=== PATIENT | female | born 1970 | race Two or more races ===

== ENCOUNTER 2024-05-16 14:54 | Emergency (ER) | payer MEDICAID, SELFPAY ==
[2024-05-16 15:32] VITALS: BP 129/82; PULSE 89; RESP 18; TEMP 36.9; O2SAT 99; BMI 28.6
--- NOTE | 2024-05-16 15:44 | XR_ITS ---
Examination: CT abdomen and pelvis without contrast. Coronal 3-D reconstructions. Sagittal 2-D reconstructions. Date and time of exam:May 11 5025 1736 hours COMPARISON: 2022 INDICATIONS: Onset of abdominal pain today CTDI: vol (mGy): 8 DLP: (mGycm): 423 Technique: Axial images of the abdomen have been obtained, 3 mm slice thickness Intravenous contrast material has not been administered. Low dose protocols were performed. One or more of the following dose reduction techniques were used; automated exposure control, adjustment of the mA and/or KV according to patient size, use of iterative reconstruction technique. Findings: No focal liver or splenic lesions No gallstones No pancreatic or adrenal mass No renal or ureteral calculi, no hydronephrosis Aorta normal size Normal appendix 13 mm fat-containing umbilical hernia No bowel obstruction Anteverted uterus no adnexal mass Urinary bladder intact IMPRESSION: No renal or ureteral calculi, no hydronephrosis [id number] bilateral renal parenchymal scar formation Normal appendix No bowel obstruction diverticulitis or free air
--- NOTE | 2024-05-16 15:45 | PD.EDRME ---
Rapid Medical Screening Exam RME Arrival date/time: 05/16/24 14:54 53-year-old female presents to the emergency department complains of abdominal pain Chief Complaint: Abdominal Pain Time Seen by Provider: 05/16/24 15:19 Vital signs: Vital Signs Temperature 98.5 F 05/16/24 15:32 Pulse Rate 89 05/16/24 15:32 Respiratory Rate 18 05/16/24 15:32 Blood Pressure 129/82 05/16/24 15:32 Pulse Oximetry (%) 99 05/16/24 15:32 Oxygen Delivery Method Room Air 05/16/24 15:32
[2024-05-16 16:07] LABS: Basophils # (Auto) 0.1 Thou/mm3 (0.0-0.2); Basophils % (Auto) 1 % (0-2.5); Eosinophils % (Auto) 0 % (0-10); Hematocrit 40.9 % (36.0-46.0); Hemoglobin 13.5 g/dL (12.0-16.0); Immature Granulocytes % (Auto) 0 % (0-0); Immature Granulocytes Auto 0.04 Thou/mm3 (0.00-0.00); Lymphocytes # (Auto) 3.5 Thou/mm3 (1.0-4.8); Lymphocytes % (Auto) 33 % (10-50); Mean Corpuscular Hemoglobin 27.4 pg (25.0-35.0); Mean Corpuscular Volume 83 fL (80-100); Monocytes # (Auto) 0.5 Thou/mm3 (0.0-0.8); Monocytes % (Auto) 5 % (0-12); Neutrophils # (Auto) 6.3 Thou/mm3 (1.8-7.7); Neutrophils % (Auto) 61 % (37-80); Nucleated Red Blood Cell % 0 /100 WBC (0); Platelet Count 317 Thou/mm3 (140-440); RDW Standard Deviation 44.3 fL (36.4-46.3); Red Blood Count 4.92 Miln/mm3 (4.00-5.20); White Blood Count 10.4 Thou/mm3 (3.6-11.0)
[2024-05-16 16:59] LABS: Alanine Aminotransferase 20 U/L (10-49); Albumin, Serum 4.9 gm/dL (3.5-5.0); Albumin/Globulin Ratio 1.6 (1.2-2.2); Alkaline Phosphatase 71 U/L (46-116); Anion Gap 9 (7-16); Aspartate Amino Transferase 16 U/L (0-34); BUN/Creatinine Ratio 27 Ratio (12-20); Bilirubin,Total 0.3 mg/dL (0.3-1.2); Blood Urea Nitrogen 16 mg/dL (9-23); Calcium 10.4 mg/dL (8.3-10.6); Calcium (Corrected) 10.4 mg/dL (8.5-10.1); Carbon Dioxide 25.8 mMol/L (20.0-31.0); Chloride 104 mMol/L (98-107); Creatinine (Component) 0.6 mg/dL (0.6-1.3); Estimated Creatinine Clearance 88.5 mL/min (>60); Glucose 90 mg/dL (74-106); Lipase 43 U/L (12-53); Osmolality,Calculated 278 (275-295); Potassium 4.6 mMol/L (3.4-5.1); Sodium 139 mMol/L (136-145); Total Protein 7.9 gm/dL (5.7-8.2); eGFR > 60 See Note
[2024-05-16 17:12] LABS: Collection Type, Urine Clean Catch
[2024-05-16 17:16] LABS: Bilirubin,Urine Negative (Negative); Blood,Urine Negative (Negative); Clarity,Urine Clear (Clear/Hazy); Color,Urine Lt-Yellow (Lt Yel-Yel); Glucose, Urine Negative (Negative); HCG Qualitative,Urine Negative; Ketones,Urine Negative (Negative); Leukocyte Esterase,Urine Positive (Negative); Nitrite,Urine Negative (Negative); PH,Urine 6.5 (5.0-7.0); Protein,Urine Negative (Neg - Trace); RBC,Urine 6 /hpf (0-3); Specific Gravity,Urine 1.019 (1.001-1.035); Squamous Epithelial Cell,Urine 5 /hpf (0-5); Urobilinogen,Urine Negative mg/dL (0.0-1.0); WBC,Urine 13 /hpf (0-5)
[2024-05-16 17:20] LABS: Culture Indicated,Urine Yes
--- NOTE | 2024-05-16 18:55 | PD.EDABDPN ---
ED Abdominal Pain RME/HPI General Chief Complaint: Abdominal Pain Stated complaint: ABD PAIN X4 DAYS Time seen by provider: 05/16/24 15:19 Arrival date/time: 05/16/24 14:54 53 year old female with past medical history of colitis present to emergency room with c/o of LLQ pain for 4 days. LOCATION: LLQ tenderness SEVERITY: Symptoms are described as being severe with limitations on activities of daily living QUALITY: Symptoms are described as being cramping CONTEXT: The patient is unable to identify any inciting events. DURATION/TIMING: The symptoms started approximately 4 days ASSOCIATED SYMPTOMS: The patient is unable to identify any other associated symptoms. MODIFYING FACTORS: The patient is unable to identify any alleviating or aggravating symptoms. PERTINENT ROS: no fevers, no anorexia, no nausea or vomiting, no diarrhea, no ripping or tearing sensations, no syncope or presyncopal symptoms, denies trauma, denies genital pain REVIEW OF SYSTEMS: See History of Present Illness - with the exception of those mentioned in the history of present illness, all other systems reviewed and reported as negative GENERAL: In general the patient is awake, interactive, in an emergency department gurney. HEAD/EYES/EARS/NOSE/THROAT: normo-cephalic, atraumatic, mucus membranes are moist, anicteric, palpebral conjunctiva is pink, trachea is midline. CARDIOVASCULAR: regular rate and regular rhythm, no murmurs, heart sounds are not distant, strong pulses in all four extremities that are equal and symmetric bilateral upper and lower extremities, normal capillary refill. CHEST/PULMONARY: normal chest rise and fall, good air movement, clear to auscultation bilaterally, normal inspiratory to expiratory ratios without evidence of respiratory distress. NECK: No midline/Paraspinal tenderness, no step off ROM/Strenght intact No Kernig and bruzinski sign. No trauma ABDOMEN: soft, LLQ tenderness no rebound or flank tenderness , no masses appreciated BACK: normal range of motion without pain. NEUROLOGICAL: cranio-facial features are symmetric, moves all four extremities equally without obvious limitations or weakness. EXTREMITY: no tenderness to palpation over the long bones or large joints of the bilateral upper and lower extremities, no joint swelling, no joint erythema, no signs of trauma, no unilateral leg swelling and no peripheral edema. SKIN: warm, dry, well-perfused, no jaundice, no rash, no telangiectasias or petechia. PSYCH: calm, cooperative, no evidence of psychosis or agitation RME / HPI RME / HPI narrative: 05/16/24 14:54 53-year-old female presents to the emergency department complains of abdominal pain Related Data Home Medications ?Medication ?Instructions ?Recorded ?Confirmed lisinopril 5 mg tablet 5 mg PO QDAY 11/25/22 11/25/22 metformin 1,000 mg tablet 1,000 mg PO BID 11/25/22 11/25/22 Previous Rx's ?Medication ?Instructions ?Recorded amoxicillin 875 mg-potassium 1 tab PO Q8H 5 days #15 tabs 05/16/24 clavulanate 125 mg tablet Allergies Allergy/AdvReac Type Severity Reaction Status Date / Time No Known Allergies Allergy Verified 05/16/24 14:57 Course Course Course Narrative: Patient presenting with symptoms consistent with urinary tract infection. No evidence for pyelonephritis, nephrolithiasis, traumatic injury, other significant pathology. Urinalysis shows findings consistent with UTI.? test was obtained and was negative.? GC/C was not obtained at request of pt.? Provided prescription for antibiotics. Advised to followup with primary physician if has continued symptoms. Return to ER if has uncontrolled pain, high fever, concern for dehydration, flank pain or other concerns. Plan:? Prescribed augmentin 875mg tid x 5 days ( UTI vs diverticulitis) Culture pending? UTI prevention was discussed including post coital voiding, copious fluids and daily cranberry juice. F/U with PCP if pain continues? ?Informed to return if having uncontrolled pain, high fever, concern for dehydration, flank pain or other concerns. Expressed understanding of and agreement with plan and all questions answered. Quality Measures none Orders Category Date Time Status CT abdomen pelvis wo con Stat Exams 05/16/24 15:44 Completed CBC Stat Lab 05/16/24 15:56 Completed Comprehensive Metabolic Panel Stat Lab 05/16/24 15:56 Completed HCG Qualitative,Urine Stat Lab 05/16/24 16:40 Completed Lipase Stat Lab 05/16/24 15:56 Completed UA, C/S IF [Urinalysis, C/S if Indicated] Stat Lab 05/16/24 16:40 Completed Urine Culture Stat Lab 05/16/24 16:40 Received Amoxicillin/Pot Clav 875 [Augmentin 875] Med 05/16/24 18:54 Discontinued 1 tab PO X1 ONE Ketorolac Inj [Toradol Inj] Med 05/16/24 18:54 Discontinued 30 mg IM X1 ONE Reevaluation(s) Reevaluation #1: pt is comfortable with antibiotic treatment Vital Signs Vital signs: Vital Signs Temperature 98.5 F 05/16/24 15:32 Pulse Rate 89 05/16/24 15:32 Respiratory Rate 18 05/16/24 15:32 Blood Pressure 129/82 05/16/24 15:32 Pulse Oximetry (%) 99 05/16/24 15:32 Oxygen Delivery Method Room Air 05/16/24 15:32 Abdominal Pain MDM Patient data External records reviewed:: [facility] previous records Clinical information provided by:: patient Social determinants that could affect healthcare access:: none Patient has the following chronic illnesses:: colitis How is presenting disease/condition affected by chronic disease/condition?: exacerbated by Evaluation data The following diagnostics were reviewed and interpreted by me:: lab results and radiology exam(s) Lab and/or radiology exams considered but not ordered:: n/a Interpretation Summary: IMPRESSION: ? No renal or ureteral calculi, no hydronephrosis ? [id number] bilateral renal parenchymal scar formation ? Normal appendix ? No bowel obstruction diverticulitis or free air CBC/CMP no acute findings? urine: + leuks + bacteria Medications / Prescriptions Medications or Prescriptions considered but not ordered:: n/a Medication administrations:: Medication Administration History Discontinued Medications Amoxicillin/Clavulanate Potassium (Amoxicillin/Pot Clav 875 Tablet) 1 tab PO X1 ONE Stop: 05/16/24 18:55 Last Admin: 05/16/24 19:05 Dose: 1 tab Documented By: JOSE Ketorolac Tromethamine (Ketorolac Inj 60 Mg/2 Ml Vial) 30 mg IM X1 ONE Stop: 05/16/24 18:55 Last Admin: 05/16/24 19:05 Dose: 30 mg Documented By: JOSE as stated Consultations Consultation(s) initiated? (list below): No Diagnosis Differential diagnosis abdominal pain: abdominal pain, acute appendicitis, calculus of kidney, constipation, diverticulitis, gastroenteritis, pancreatitis, small bowel obstruction and other (UTI) Most likely diagnosis given after review of the tests above:: UTI Admission Indicated Admission indicated?: not indicated Admission Request Was there a request for admission?: No Disposition Plan Disposition Plan: Discharge Discharge Attestation Discharge Attestation: The patient and all family members were given an opportunity to ask questions and understood the discharge instructions. Discharge instructions specifically effects, indications for sooner follow up or return to the emergency department, and the expected course of current diagnosis. Patient condition: Stable Discharge Plan Plan Patient Disposition: HOME (Self Care) Health Concerns: Follow with PMD as directed Take tylenol or motrin as need Return to ED if sx worsen Prescriptions/Referrals Prescriptions/Med Rec: New amoxicillin-pot clavulanate 875-125 mg tablet 1 tab PO Q8H 5 Days Qty: 15 0RF No Action metformin 1,000 mg tablet 1,000 mg PO BID Patient Comments: TOME BUD TABLETA POR V A ORAL DOS VECES AL D A CON ALIMENTO lisinopril 5 mg tablet 5 mg PO QDAY Patient Comments: TOME BUD TABLETA POR V A ORAL TODOS LOS D Referrals: No Primary/Family,Physician [Primary Care Provider] - In 1 week Problem List Clinical Impression: UTI (urinary tract infection) Patient/Caregiver Discharge Instructions Education Materials: Understanding Urinary Tract ... Print Language: Icelandic Stand Alone Forms: Heather Award Info., Patient Portal Info Letter
[2024-05-16] MEDS: KETOROLAC INJ 60 MG/2 ML VIAL 30 MG IM (19:05)
[2024-05-16] MEDS: AMOXICILLIN/POT CLAV 875 TABLET 1 TAB PO (19:05)
== END 2024-05-16 19:11 | disposition home or self-care (01) ==
PROVIDERS: Nurse Practitioner Primary Care; Emergency Provider Emergency Medicine
DX: N39.0 Urinary tract infection, site not specified (principal)
CPT/HCPCS: 36415; 74176; 80053; 81001; 81025; 83690; 85025; 87086; 96372; 99284; J1885; A9270

== ENCOUNTER 2024-11-11 08:54 | Emergency (ER) | payer MEDICAID, SELFPAY ==
[2024-11-11 08:55] VITALS: BMI 30.2
[2024-11-11 09:07] VITALS: BP 134/87; PULSE 70; RESP 19; TEMP 36.8; O2SAT 96
--- NOTE | 2024-11-11 09:13 | XR_ITS ---
Examination: CT abdomen with intravenous contrast CT pelvis with intravenous contrast 2-D coronal reconstructions 2-D sagittal reconstructions Date and time of exam:November 11, 2024, 1030 hrs. Indications: Mid abdominal pain beginning 2 weeks ago Comparison: May 16, 2024. CTDI: vol (mGy) 9.05. DLP: (mGycm) 404 Technique: Multiple axial sections of the abdomen and pelvis have been obtained. 64 slice high-resolution scanner used. 3 mm axial sections have been obtained, post intravenous injection 70 cc Isovue-370. 2-D sagittal, coronal reconstructions obtained. Low dose protocols were performed. One or more of the following dose reduction techniques were used; automated exposure control, adjustment of the mA and/or KV according to patient size, use of iterative reconstruction technique. Findings: Fatty infiltration throughout the liver, no focal liver or splenic lesion. No gallstones. No pancreatic or adrenal mass. No renal or ureteral calculi, no hydronephrosis. Aorta normal size. Normal appendix. 22 mm fat-containing umbilical hernia. Scattered colonic diverticulosis, no diverticulitis No pelvic mass No bladder mass or bladder calculi Moderate osteopenia Impression: No renal or ureteral calculi, no hydronephrosis Normal appendix Small fat-containing umbilical hernia. Colonic diverticulosis, no diverticulitis No bowel obstruction
--- NOTE | 2024-11-11 09:23 | XR_ITS ---
November 11, 2024, 1007 hrs. Indications: Shortness of breath and coughing onset today. Findings: Mild enlargement left ventricle. No pneumonia or pulmonary edema. The osseous structures are intact. Impression: No pneumonia or pulmonary edema.
--- NOTE | 2024-11-11 09:24 | PC.NURSE ---
Patient from [facility] and taken to room 19 with c/o mid to left upper abdominal pain x 3 months, worse x 2 days, no c/o n/v/diarhea, skin is warm dry and pink.
[2024-11-11 09:30] VITALS: PULSE 69
--- NOTE | 2024-11-11 09:42 | EDNOTE_ITS ---
ED Abdominal Pain RME/HPI General Chief Complaint: Abdominal Pain Stated complaint: LEFT ABD PAIN RADIATES TO THROAT Time seen by provider: 11/11/24 09:05 Arrival date/time: 11/11/24 08:54 Limitations: no limitations RME / HPI RME / HPI narrative: DR. ESTEBAN MAIN ED EVALUATION: 54-year-old female with past medical history of hypertension, diabetes mellitus, and GERD presents to the Emergency Department accompanied by her with complaint of left upper abdominal pain radiating to the back for 3 weeks, worsening today. Last oral intake was cookies at 6 AM. Last bowel movement was at 8 AM and was normal. She denies alcohol, tobacco, or recreational drug use. Related Data Home Medications ?Medication ?Instructions ?Recorded ?Confirmed lisinopril 5 mg tablet 5 mg PO QDAY 11/25/22 metformin 1,000 mg tablet 1,000 mg PO BID 11/25/22 atorvastatin 20 mg tablet 20 mg PO .qd 11/11/24 Allergies Allergy/AdvReac Type Severity Reaction Status Date / Time No Known Allergies Allergy Verified 11/11/24 08:57 Review of Systems Review of Systems Systems Reviewed: All systems reviewed, normal except as documented Past Medical History Past Medical History CARDIAC: Positive Hypertension ENDOCRINE: Positive Endocrine Disorders and Diabetes Mellitus Type 2 PSYCHO/SOCIAL: Positive Anxiety OTHER HISTORY: Positive Hospitalization, Chicken Pox, Measles and Mumps Surgical History SURGICAL: Positive Section Social History SMOKING STATUS: Never smoker SUBSTANCE USE: does not use ALCOHOL: Never ED Exam General Limitations: Present no limitations General appearance: Present alert and in no apparent distress Head Head exam: Present atraumatic, normocephalic and normal inspection Eye Eye exam: Present normal appearance, PERRL and EOMI ENT ENT exam: Present normal exam, normal oropharynx and mucous membranes moist Neck Neck exam: Present normal inspection, full ROM and trachea midline Chest Chest inspection: Present normal inspection and symmetric chest wall rise Respiratory Respiratory exam: Present normal lung sounds bilaterally Cardiovascular Cardiovascular exam: Present regular rate, normal rhythm and normal heart sounds Abdominal Exam Abdominal exam: Present tenderness (left upper quadrant tenderness without costochondral involvement) and normal bowel sounds Extremities Exam Extremities exam: Present normal inspection and full ROM Back Exam Back exam: Present normal inspection and full ROM Neurological Exam Neurological exam: Present alert, oriented X3 and CN II-XII intact Psychiatric Psychiatric exam: Present normal affect and normal mood Skin Skin exam: Present warm, dry, intact and normal color Course Quality Measures none Orders Category Date Time Status CT Screening NOW Care 11/11/24 09:13 Active Chopped Strand Operator NOW Care 11/11/24 09:23 Active Continuous Pulse Oximetry NOW Care 11/11/24 09:23 Completed Insert IV NOW Care 11/11/24 09:13 Active Insert IV NOW Care 11/11/24 09:[address] abdomen pelvis w con Stat Exams 11/11/24 09:13 Completed XR chest 1V portable Stat Exams 11/11/24 09:23 Completed Amylase Stat Lab 11/11/24 09:40 Completed CBC Stat Lab 11/11/24 09:40 Completed Comprehensive Metabolic Panel Stat Lab 11/11/24 09:40 Completed HCG Qualitative,Urine Stat Lab 11/11/24 09:35 Completed Prothrombin Time with INR Stat Lab 11/11/24 09:40 Completed Troponin I Stat Lab 11/11/24 09:40 Completed UA, C/S IF [Urinalysis, C/S if Indicated] Stat Lab 11/11/24 09:35 Completed Morphine* Inj Med 11/11/24 09:13 Discontinued 4 mg IV X1 ONE Ondansetron Inj [Zofran Inj] Med 11/11/24 09:13 Discontinued 4 mg IVP X1 ONE Sodium Chloride 0.9% 1000 ml [Ns] 1,000 ml Med 11/11/24 09:23 Discontinued IV 1,000 mls/hr Vital Signs Vital signs: Vital Signs Temperature 98.3 F 11/11/24 09:07 Pulse Rate 70 11/11/24 09:07 Respiratory Rate 19 11/11/24 09:07 Blood Pressure 134/87 H 11/11/24 09:07 Pulse Oximetry (%) 96 11/11/24 09:07 Oxygen Delivery Method Room Air 11/11/24 09:07 Abdominal Pain MDM MDM Narrative MDM Narrative:: I, Jackelyn Servin am scribing for and in the presence of Dr. Esteban. Patient data External records reviewed:: [facility] previous records Clinical information provided by:: patient Social determinants that could affect healthcare access:: none Patient has the following chronic illnesses:: Hypertension, diabetes, and GERD. How is presenting disease/condition affected by chronic disease/condition?: exacerbated by Evaluation data The following diagnostics were reviewed and interpreted by me:: lab results and radiology exam(s) Lab and/or radiology exams considered but not ordered:: none Interpretation Summary: Procedure(s): XR chest 1V portable Accession Number(s): [id number] cc: Eleuterio Esteban MD; Roel Rendon MD; Federico Olson MD~ November 11, 2024, 1007 hrs. Indications: Shortness of breath and coughing onset today. Findings: Mild enlargement left ventricle. No pneumonia or pulmonary edema. The osseous structures are intact. Impression: No pneumonia or pulmonary edema. Dictated By: Federico Olson MD Procedure(s): CT abdomen pelvis w con Accession Number(s): [id number] cc: Pricilla (TORY),Riley SPEARS; Roel Rendon MD; Federico Olson MD~ Examination: CT abdomen with intravenous contrast CT pelvis with intravenous contrast 2-D coronal reconstructions 2-D sagittal reconstructions Date and time of exam:November 11, 2024, 1030 hrs. Indications: Mid abdominal pain beginning 2 weeks ago Comparison: May 16, 2024. CTDI: vol (mGy) 9.05. DLP: (mGycm) 404 Technique: Multiple axial sections of the abdomen and pelvis have been obtained. 64 slice high-resolution scanner used. 3 mm axial sections have been obtained, post intravenous injection 70 cc Isovue-370. 2-D sagittal, coronal reconstructions obtained. Low dose protocols were performed. One or more of the following dose reduction techniques were used; automated exposure control, adjustment of the mA and/or KV according to patient size, use of iterative reconstruction technique. Findings: Fatty infiltration throughout the liver, no focal liver or splenic lesion. No gallstones. No pancreatic or adrenal mass. No renal or ureteral calculi, no hydronephrosis. Aorta normal size. Normal appendix. 22 mm fat-containing umbilical hernia. Scattered colonic diverticulosis, no diverticulitis No pelvic mass No bladder mass or bladder calculi Moderate osteopenia Impression: No renal or ureteral calculi, no hydronephrosis Normal appendix Small fat-containing umbilical hernia. Colonic diverticulosis, no diverticulitis No bowel obstruction Dictated By: Federico Olson MD Medications / Prescriptions Medications or Prescriptions considered but not ordered:: none Medication administrations:: Medication Administration History Discontinued Medications Sodium Chloride (Ns) 1,000 mls @ 1,000 mls/hr IV .Q1H ONE Stop: 11/11/24 10:22 Last Infusion: 11/11/24 10:53 Dose: Infused Documented By: Admin: 11/11/24 09:52 Dose: 1,000 mls/hr Documented By: JERMAIN Morphine Sulfate (Morphine Sulf Inj 4 Mg/Ml Vial) 4 mg IV X1 ONE Stop: 11/11/24 09:14 Last Admin: 11/11/24 09:57 Dose: 4 mg Documented By: JERMAIN Ondansetron HCl (Ondansetron Inj 2 Mg/Ml Inj 2 Ml) 4 mg IVP X1 ONE; Protocol Stop: 11/11/24 09:14 Last Admin: 11/11/24 09:53 Dose: 4 mg Documented By: JERMAIN see above Consultations Consultation(s) initiated? (list below): No Diagnosis Differential diagnosis abdominal pain: other (Diverticulitis, pancreatitis, and gastritis.) Most likely diagnosis given after review of the tests above:: Abdominal pain Admission Indicated Admission indicated?: not indicated Admission Request Was there a request for admission?: No Disposition Plan Disposition Plan: Discharge Discharge Attestation Discharge Attestation: The patient and all family members were given an opportunity to ask questions and understood the discharge instructions. Discharge instructions specifically effects, indications for sooner follow up or return to the emergency department, and the expected course of current diagnosis. Patient condition: Stable Discharge Plan Plan Patient Disposition: HOME (Self Care) Patient condition on transfer: Stable Prescriptions/Referrals Prescriptions/Med Rec: No Action atorvastatin 20 mg tablet 20 mg PO .qd Patient Comments: YUNIOR GREENEDOS LOS D PARA 90 NDIAYE metformin 1,000 mg tablet 1,000 mg PO BID Patient Comments: TOME BUD TABLETA POR V A ORAL DOS VECES AL D A CON ALIMENTO lisinopril 5 mg tablet 5 mg PO QDAY Patient Comments: TOME BUD TABLETA POR V A ORAL TODOS LOS D Referrals: Roel Rendon MD [Primary Care Provider, Family Practice] - In 1 week Problem List Clinical Impression: Abdominal pain Patient/Caregiver Discharge Instructions Discharge Activity: activity as tolerated Education Materials: Abdominal Pain Additional Instructions: Follow-up with your doctor next week. You can eat any foods that you would like. Take Tylenol 500 mg 1 every 6 hours as needed for pain. Print Language: Wallisian
[2024-11-11 09:51] LABS: Basophils # (Auto) 0.1 Thou/mm3 (0.0-0.2); Basophils % (Auto) 1 % (0-2.5); Eosinophils # (Auto) 0.1 Thou/mm3 (0.0-0.5); Eosinophils % (Auto) 1 % (0-10); Hematocrit 38.6 % (36.0-46.0); Hemoglobin 12.6 g/dL (12.0-16.0); Immature Granulocytes Auto 0.05 Thou/mm3 (0.00-0.00); Lymphocytes # (Auto) 3.9 Thou/mm3 (1.0-4.8); Lymphocytes % (Auto) 39 % (10-50); Mean Corpuscular HGB Conc 32.6 g/dl (31.0-37.0); Mean Corpuscular Hemoglobin 27.5 pg (25.0-35.0); Mean Corpuscular Volume 84 fL (80-100); Monocytes # (Auto) 0.7 Thou/mm3 (0.0-0.8); Monocytes % (Auto) 7 % (0-12); Neutrophils # (Auto) 5.1 Thou/mm3 (1.8-7.7); Neutrophils % (Auto) 52 % (37-80); Nucleated Red Blood Cell # 0.00 Thou/mm3 (0.00-0.00); Nucleated Red Blood Cell % 0 /100 WBC (0); Platelet Count 310 Thou/mm3 (140-440); RDW Standard Deviation 45.1 fL (36.4-46.3); Red Blood Count 4.59 Miln/mm3 (4.00-5.20); White Blood Count 9.9 Thou/mm3 (3.6-11.0)
[2024-11-11] MEDS: SODIUM CHLORIDE 0.9% 1000 ML 1,000 ML IV (09:52)
[2024-11-11] MEDS: ONDANSETRON INJ 2 MG/ML INJ 2 ML 4 MG IVP (09:53)
[2024-11-11] MEDS: MORPHINE SULF INJ 4 MG/ML VIAL IV (09:57)
[2024-11-11 10:01] LABS: Collection Type, Urine Clean Catch
[2024-11-11 10:10] LABS: Alanine Aminotransferase 20 U/L (10-49); Albumin, Serum 4.4 gm/dL (3.5-5.0); Albumin/Globulin Ratio 2.0 (1.2-2.2); Alkaline Phosphatase 60 U/L (46-116); Amylase 74 U/L (30-118); Anion Gap 8 (7-16); Aspartate Amino Transferase 15 U/L (0-34); BUN/Creatinine Ratio 18 Ratio (12-20); Bilirubin,Total 0.3 mg/dL (0.3-1.2); Blood Urea Nitrogen 9 mg/dL (9-23); Calcium 9.2 mg/dL (8.3-10.6); Calcium (Corrected) 9.2 mg/dL (8.5-10.1); Carbon Dioxide 26.6 mMol/L (20.0-31.0); Chloride 105 mMol/L (98-107); Creatinine (Component) 0.5 mg/dL (0.6-1.3); Estimated Creatinine Clearance 107.9 mL/min (>60); Globulin 2.2 gm/dL (2.3-3.5); Glucose 94 mg/dL (74-106); Osmolality,Calculated 278 (275-295); Potassium 4.1 mMol/L (3.4-5.1); Sodium 140 mMol/L (136-145); Total Protein 6.6 gm/dL (5.7-8.2); Troponin I < 0.002 ng/mL (0.0-0.045); eGFR > 60 See Note
[2024-11-11 10:40] LABS: HCG Qualitative,Urine Negative
[2024-11-11 10:42] LABS: Bilirubin,Urine Negative (Negative); Blood,Urine Negative (Negative); Clarity,Urine Clear (Clear/Hazy); Color,Urine Lt-Yellow (Lt Yel-Yel); Culture Indicated,Urine Not Indicated; Glucose, Urine Negative (Negative); Hyaline Casts,Urine < 1 /hpf (0-1); Ketones,Urine Negative (Negative); Leukocyte Esterase,Urine Positive (Negative); Nitrite,Urine Negative (Negative); PH,Urine 6.0 (5.0-7.0); Protein,Urine Negative (Neg - Trace); RBC,Urine 1 /hpf (0-3); Specific Gravity,Urine 1.020 (1.001-1.035); Squamous Epithelial Cell,Urine 3 /hpf (0-5); Urobilinogen,Urine Negative mg/dL (0.0-1.0); WBC,Urine 4 /hpf (0-5)
[2024-11-11 10:43] LABS: INR 0.9 (0.9-1.3); Prothrombin Time 9.9 Seconds (9.0-12.2)
[2024-11-11 11:18] VITALS: BP 123/68; PULSE 66; RESP 19; TEMP 36.6; O2SAT 95
[2024-11-11 12:33] VITALS: BP 109/62; PULSE 70; RESP 16; O2SAT 98
== END 2024-11-11 12:34 | disposition home or self-care (01) ==
PROVIDERS: Nurse Practitioner Primary Care; Emergency Provider Family Medicine; PCP Family Medicine
DX: K57.30 Diverticulosis of large intestine without perforation or abscess without bleeding (principal); K42.9 Umbilical hernia without obstruction or gangrene; R05.9 Cough, unspecified; I10 Essential (primary) hypertension; E11.9 Type 2 diabetes mellitus without complications; K21.9 Gastro-esophageal reflux disease without esophagitis; Z79.84 Long term (current) use of oral hypoglycemic drugs; Z79.899 Other long term (current) drug therapy
CPT/HCPCS: 36415; 71045; 74177; 80053; 81001; 81025; 82150; 84484; 85025; 85610; 96361; 96374; 99284; A4649; J2270; J2405; J7030; Q9967